=== PATIENT | male | born 1970 | race Caucasian/White ===

== ENCOUNTER 2020-03-19 07:59 | Emergency (ER) | payer OTHER, SELFPAY ==
[2020-03-19 08:05] VITALS: BP 174/100; PULSE 81; RESP 18; TEMP 36.8; O2SAT 96; BMI 48.8
--- NOTE | 2020-03-19 08:18 | CTR_ITS ---
PROCEDURE INFORMATION: Exam: CT Abdomen And Pelvis Without Contrast Exam date and time: 03/19/2020 8:20 AM Age: 49 years old Clinical indication: Other: Pain when pooping; Prior surgery; Surgery date: 6+ months; Surgery type: Had a lap band put in and taken out; Additional info: Llq pain, HX of diverticulitis TECHNIQUE: Imaging protocol: Computed tomography of the abdomen and pelvis without contrast. Radiation optimization: All CT scans at this facility use at least one of these dose optimization techniques: automated exposure control; mA and/or kV adjustment per patient size (includes targeted exams where dose is matched to clinical indication); or iterative reconstruction. Other contrast: Oral, REDI-CAT 2 , 450; COMPARISON: No relevant prior studies available. RADIATION DOSE METRICS: Total DLP (mGy-cm): 1638.08 FINDINGS: Lungs: 18.9 mm posterior left pulmonary basilar calcified granuloma. Liver: Normal. No mass. Gallbladder and bile ducts: Normal. No calcified stones. No ductal dilation. Pancreas: Normal. No ductal dilation. Spleen: The spleen demonstrates several small calcifications consistent with healed granulomatous disease. Adrenals: Normal. No mass. Kidneys and ureters: Posterior left renal upper pole exophytic 2.0 cm 14.3 Hounsfield units probable benign simple cyst. Stomach and bowel: There is mural thickening of the proximal sigmoid colon, with paracolonic diverticula and pericolonic soft tissue stranding with increased paracolic adipose attenuation. No evidence of perforation or abscess formation. Appendix: The vermiform appendix is normal. Intraperitoneal space: Unremarkable. No free air. No significant fluid collection. Vasculature: Unremarkable. No abdominal aortic aneurysm. Lymph nodes: No enlarged lymph nodes. Bladder: Unremarkable as visualized. Reproductive: The prostate gland demonstrates nonspecific parenchymal calcifications. Bones/joints: L5-S1 spondylosis with bilateral neural foraminal stenosis, mild anterolisthesis. Soft tissues: A tiny paraumbilical hernia containing only abdominal fat is noted. CT/CT abdomen pelvis wo con [id number] IMPRESSION: 1. Uncomplicated sigmoid colonic diverticulitis. 2. Left renal probable benign simple cyst. 3. Chronic calcific prostatitis. COMMENTS: Consistent with the [employer]'s Incidental Findings Committee white paper (J Am Gilbert Radiol 2018): Any incidental renal lesion less than 1.0 cm or classified as too small to characterize, or any incidental cystic renal lesion characterized as simple-appearing, is likely benign. No follow-up imaging is recommended for these lesions per consensus recommendations based on imaging criteria. Radiation Dose CTDIVOL = (mGy): DLP = 1638.08 (mGy-cm)
--- NOTE | 2020-03-19 08:19 | W.ED.ABDPA2 ---
HPI - Abdominal Pain General: Chief Complaint: Abdominal Pain Stated Complaint: abd pain Time Seen by Provider: 03/19/20 08:13 History of Present Illness: HPI narrative: Patient here with left lower quadrant abdominal pain that started about 0 300 this morning that was unbearable at that time having some diarrhea. He said this is similar to his other 3 hospitalizations for diverticulitis and he did want to get bad this time because he has had for [place] with his job. Denies any fever chills nausea or vomiting. MD elicited complaint: abdominal pain Pertinent past history: diverticulitis Onset (ago): hour(s) Pain Consistency: colicky Location: LLQ Severity: mild Quality: stabbing Radiation: none Migration to: no migration Exacerbating factors: nothing Relieving factors: rest Associated Symptoms: Reports no associated symptoms; Denies chills, fever(s), nausea and vomiting Review of Systems Const: Denies: fever(s), chills or body aches Eyes: Denies: change in vision or blurry vision ENMT: Denies: throat pain or nasal congestion Card: Denies: chest pain or dyspnea on exertion Resp: Denies: dyspnea, productive cough or non-productive cough GI: Reports: abdominal pain; Denies: nausea or vomiting : Denies: difficulty urinating Musc: Denies: extremity pain Skin/Breast: Denies: rash Neuro: Denies: headache(s) Psych: Denies: anxiety or depression Robinson/Lymph: Denies: easy bruising PFSH ED PFSH: Social History Smoking and tobacco status: never smoked Physical Exam Const: COMMON NORMALS: no acute distress, average body habitus and patient oriented x3 HENMT: COMMON NORMALS: normocephalic HEAD & SCALP: normal to inspection and normocephalic FACE & SINUS: normal facial exam Eye: COMMON NORMALS: conjunctivae normal GENERAL EYE: appearance normal, both eyes and all related structures CONJUNCTIVA: Yes conjunctivae normal Neck/C-Spine: COMMON NORMALS: no JVD Chest: COMMONS NORMALS: normal inspection of the chest Resp: COMMON NORMALS: normal respiratory effort and clear to auscultation bilaterally AUSCULTATION: clear to auscultation bilaterally Cardio: COMMON NORMALS: no JVD, regular rate and regular rhythm RATE: regular rate RHYTHM: regular rhythm GI: COMMON NORMALS: Normal to inspection, nondistended, normoactive bowel sounds present PALPATION: Yes Tenderness to palpation present (GI) Details: LLQ Extremity: COMMON NORMALS: normal to inspection and full ROM Neuro: COMMON NORMALS: patient oriented x3 Course Vital Signs: Vital signs: Vital Signs Temperature 98.2 F 03/19/20 08:05 Pulse Rate 81 03/19/20 08:05 Respiratory Rate 18 03/19/20 08:05 Blood Pressure 174/100 03/19/20 08:05 Pulse Oximetry 96 03/19/20 08:05 Coding Level of Care Code ED [employer] for Aditya Pozo
[2020-03-19 08:37] LABS: Basophils # 0.1 10^3/uL (0.0-0.1); Basophils % 0.6 %; Eosinophils # 0.2 10^3/uL (0.0-0.8); Eosinophils % 1.7 %; Hematocrit 43.2 % (42.0-52.0); Hemoglobin 13.7 g/dL (11.7-16.6); Lymphocytes # 3.2 10^3/uL (0.8-4.8); Lymphocytes % 22.9 %; Mean Corpuscular HGB Conc 31.7 g/dL (30.0-36.0); Mean Corpuscular Hemoglobin 27.5 pg (28.0-34.0); Mean Corpuscular Volume 86.6 fL (80-94); Mean Platelet Volume 10.9 fL (7.4-10.4); Monocytes # 0.9 10^3/uL (0.2-0.9); Monocytes % 6.3 %; Neutrophils # 9.6 10^3/uL (1.8-7.7); Neutrophils % 68.1 %; Nucleated Red Blood Cells % 0 %; Platelet Count 345 10^3/cmm (130-400); Red Blood Count 4.99 10^6/uL (4.1-5.3); Red Cell Distribution Width 13.6 % (12.1-15.1); White Blood Count 14.1 10^3/uL (4.0-10.0)
[2020-03-19] MEDS: ciprofloxacin 400 MG/200 ML PREMIX 200 MG IV (08:39)
[2020-03-19] MEDS: sodium chloride 0.9% 1,000 ML 999 ML IV (08:39)
--- NOTE | 2020-03-19 08:40 | PC.NURSE ---
Patient unable to urinate at this time.
[2020-03-19 08:42] LABS: Alanine Aminotransferase 28 U/L (0-41); Albumin Level 3.9 g/dL (3.5-5.2); Alkaline Phosphatase 71 IU/L (40-130); Anion Gap 14.5 (5-19); Aspartate Amino Transferase 27 U/L (0-40); Blood Urea Nitrogen 15 mg/dL (6-20); Calcium 8.6 mg/dL (8.5-10.5); Carbon Dioxide 26 mmol/L (22-29); Chloride 99 mmol/L (98-107); Globulin 4.1 g/dL (1.3-4.6); Glomerular Filtration Rate 79.1 mL/min (90-130); Glucose 107 mg/dL (65-115); Lipase 19 U/L (13-60); Osmolality Calculated 277 mOsm/kg (285-295); Potassium 4.5 mmol/L (3.5-5.1); Sodium 135 mmol/L (136-145); Total Bilirubin 0.7 mg/dL (0.15-1.2)
[2020-03-19 08:58] VITALS: RESP 15; O2SAT 98
[2020-03-19] MEDS: ondansetron 2 mg/ML SDV 2 mL 4 MG IVP (08:58)
[2020-03-19] MEDS: morphine 4 mg/mL SDV 1 mL IVP (08:58)
[2020-03-19 09:11] LABS: Add Urine Microscopic? NO
[2020-03-19 09:15] LABS: Bilirubin Urine Neg (NEGATIVE); Blood Urine Neg (Negative); Glucose Urine UA Norm (Normal); Ketones Urine Negative (Negative); Nitrate Urine Negative (Negative); Protein Urine Neg (Negative); Urine Appearance Clear (CLEAR); Urine Color Straw (Yellow); pH Urine 6.5 (5-7)
[2020-03-19 09:16] LABS: Leukocyte Esterase Urine Negative (Negative); Urobilinogen Urine Norm (Negative)
[2020-03-19] MEDS: barium sulfate 450 mL Oral Susp PO (09:29)
--- NOTE | 2020-03-19 10:29 | PC.NURSE ---
Read and agree with assessment
[2020-03-19] MEDS: metroNIDAZOLE IV 500 MG/100 ML PREMIX 100 MG IV (10:30)
[2020-03-19 11:32] VITALS: BP 136/69; PULSE 83; RESP 14; O2SAT 97
== END 2020-03-19 11:33 | disposition home or self-care (01) ==
PROVIDERS: Emergency Provider Nurse Practitioner Family
DX: R10.9 Unspecified abdominal pain (principal)
CPT/HCPCS: 12345; 74176; 80053; 81003; 83690; 85025; 96365; 96368; 96375; 99283; 99284; J0744; J2270; J2405; J7030; S0030

== ENCOUNTER → 2020-05-17 15:25 | Outpatient (BNVA) | payer OTHER, SELFPAY | PROVIDERS: Visit Provider Nurse Practitioner | DX: U07.1 COVID-19 (principal) | CPT/HCPCS: 87635 ==

== ENCOUNTER → 2020-05-30 11:31 | Outpatient (BNVA) | payer OTHER, SELFPAY | PROVIDERS: Visit Provider Nurse Practitioner | DX: R53.83 Other fatigue (principal) | CPT/HCPCS: 80053; 85025 ==

== ENCOUNTER → 2020-05-31 08:50 | Outpatient (BNVA) | payer OTHER, SELFPAY | PROVIDERS: Visit Provider Nurse Practitioner | DX: R73.9 Hyperglycemia, unspecified (principal) | CPT/HCPCS: 83036 ==

== ENCOUNTER 2020-12-10 09:03 | Emergency (ER) | payer OTHER, SELFPAY ==
--- NOTE | 2020-12-10 | USCV_ITS ---
Bassam Baker Age: 50 Gender: M : 1970 Exam Date: 12/10/2020 09:40 Ordering Phys: Harpreet Byrd DO Technologist: EUNICE [place] [facility] [place]: RLE CALF PAIN HISTORY: Lower extremity pain. PROCEDURES: Venous duplex imaging was performed in only the right lower extremity. The following venous structures were evaluated: common femoral vein, profunda vein, proximal portion of the greater saphenous vein, superficial femoral vein, and the popliteal vein. In addition, the posterior tibial and peroneal trunk were evaluated. Serial compression, augmentation maneuvers, and spectral Doppler flow evaluation were performed. FINDINGS: Examination was technically limited due to body habitus. Normal 2-D Doppler and augmentation and compressibility throughout the lower extremity venous structures. Additional imaging through the proximal calf veins also reveals no thrombus. Limited evaluation of the greater saphenous vein is patent with no thrombus.. CONCLUSIONS No DVT right lower extremity. Dr. Cony Resendiz DO (Electronically Signed) Final Date: 10 December 2020 16:09 S
[2020-12-10 09:11] VITALS: TEMP 36.3; BMI 50.2
[2020-12-10 09:14] VITALS: BP 164/83; PULSE 77; RESP 16; O2SAT 97
--- NOTE | 2020-12-10 09:17 | US_ITS ---
WS: [id number] ULTRASOUND SOFT TISSUES RIGHT lower extremity. HISTORY: R lower calf / suspect muscle tear COMPARISON: None available. TECHNIQUE: 2-D and color Doppler imaging is submitted. Ultrasound directed to the area of interest. This is within the posterior RIGHT lower extremity. Norm al appearance of the muscle bands. There is no fluid gap or mass identified. No fluid collection. No hematoma. US/US soft tissue/extremity [id number] IMPRESSION: Negative ultrasound RIGHT lower extremity soft tissue.
--- NOTE | 2020-12-10 09:22 | W.ED.EXTPRO ---
HPI - Extremity Problem General: Chief complaint: Extremity Injury, Lower Stated complaint: Right leg pain Time Seen by Provider: 12/10/20 09:12 History of Present Illness: HPI Narrative: 50-year-old male presents emergency room complaining of right calf pain. He is walking up an incline felt a snapping sensation in the sudden burning and pain in the right mid calf. He has had a difficult time walking since then. No other injury no injury to the head face neck or arms. When he got this it did cause enough discomfort he stumbled and fell. He is not previously had this before he is not on any blood thinners. MD Complaint: extremity pain Onset (ago): minute(s) Pain Consistency: constant Location: right Quality: burning and aching Relieving factors: immobilization and rest Exacerbating factors: weight bearing and walking Associated symptoms: Reports no associated symptoms; Deny arthralgias, chest pain, fever(s), myalgias, rash or short of breath Review of Systems Const: Denies: fever(s) ENMT: Denies: throat pain, ear or mastoid pain, nasal discharge or nasal congestion Card: Denies: chest pain Resp: Denies: dyspnea, productive cough or non-productive cough GI: Denies: abdominal pain, nausea, vomiting, hematemesis, coffee ground emesis, diarrhea, constipation, bloating, hematochezia or melena : Denies: flank pain, dysuria, urinary frequency or urinary urgency Skin/Breast: Denies: rash PFSH ED PFSH: Medical History DVT (deep venous thrombosis) Left NGHIA on CPAP Surgical History History of back surgery History of urethral narrowing Dilation Hx of laparoscopic gastric banding Then removed Family History Family/Other Leukemia Uncle Brother Diabetes Denies family history of Bleeding disorder Social History Smoking and tobacco status: never smoked Second hand smoke exposure: No Smoking risk assessment/counseling performed?: No Alcohol intake: never Desire information about alcohol rehabilitation?: No Counseling given: No Desire information about substance/drug rehabilitation?: No Counseling given: No Adopted: No Caregiver/support person: No Lives independently: Yes Household members: spouse Housing: House Marital status: service: No Current occupational status: employed Current occupation: [employer] History of recent travel: Yes Current gender identity: Male Physical Exam Const: COMMON NORMALS: no acute distress GENERAL APPEARANCE: cooperative and comfortable ORIENTATION/CONSCIOUSNESS: Yes awake, Yes oriented to person, Yes oriented to place and Yes oriented to time HENMT: COMMON NORMALS: normocephalic, atraumatic and hearing grossly normal bilaterally HEAD & SCALP: normocephalic and atraumatic Neck/C-Spine: COMMON NORMALS: no JVD Resp: COMMON NORMALS: normal respiratory effort, No retractions, No use of accessory muscles and clear to auscultation bilaterally AUSCULTATION: clear to auscultation bilaterally Cardio: COMMON NORMALS: no JVD, regular rate, regular rhythm and No murmurs present (Cardio) RATE: regular rate RHYTHM: regular rhythm GI: COMMON NORMALS: Soft to palpation and No hepatosplenomegaly present AUSCULTATION: Yes normoactive bowel sounds PALPATION: Yes Soft to palpation, No Tenderness to palpation present (GI), No Guarding due to palpation present (GI) and Yes No hepatosplenomegaly present Extremity: NARRATIVE EXTREMITY EXAM: Mild swelling of the right posterior calf. Patient can dorsum plantar flex strength without difficulty. Achilles tendon palpably intact Neuro: SENSORIUM/ORIENTATION: Yes oriented to person, Yes oriented to place and Yes oriented to time Skin: COMMON NORMALS: no rashes or lesions noted GENERAL SKIN EXAM: no rashes or lesions noted Course Vital Signs: Vital signs: Vital Signs Temperature 97.3 F L 12/10/20 09:11 Pulse Rate 89 12/10/20 10:36 Respiratory Rate 18 12/10/20 10:36 Blood Pressure 149/89 12/10/20 10:36 Pulse Oximetry 95 12/10/20 10:36 MDM - Extremity (Nontraumatic) MDM Narrative: Medical decision making narrative: Venous duplex lower extremity remedy negative for clot. The Achilles tendon is palpably intact. I suspect he has a gastrocnemius partial tear we will put him nonweightbearing on crutches follow-up with his primary care doctor work comp doctor if persists may need to an MRI for further evaluation. Avoid climbing her stairs nonweightbearing on the right leg without the crutches until released. Discharge Plan Discharge Patient Disposition: Home Clinical Impression: Sprain, gastrocnemius Condition: Stable Prescriptions: New diclofenac sodium 75 mg tablet,delayed release (DR/EC) 75 mg PO Q12H PRN (Reason: pain) Qty: 20 RF: 0 No Action (DME) nebulizer accessories Kit See Rx Instructions .ROUTE .MEDSUPPLY Qty: 1 RF: 0 clarithromycin 500 mg tablet 500 mg PO Q12H Qty: 20 RF: 0 Discharge Orders: Discharge ED (Routine); Ordered 12/10/20 Ordered By: Harpreet Byrd Discharge Diet: Usual diet Discharge Activity: Limit activity as instructed and Use walker/crutches as instructed Patient Instructions: Opioid Safety Activity Restrictions/Additional Instructions: No climbing stairs or ladders avoid inclines. Ice to the right lower leg anti-inflammatoriies. Nonweightbearing until released checkup with your Workmen's Comp. physician or primary care doctor in the next 2 days. Coding Level of Care Code ED [employer] for Aditya Pozo
[2020-12-10 10:36] VITALS: BP 149/89; PULSE 89; RESP 18; O2SAT 95
== END 2020-12-10 11:20 | disposition home or self-care (01) ==
PROVIDERS: Emergency Provider Family Medicine
DX: S86.111A Strain of other muscle(s) and tendon(s) of posterior muscle group at lower leg level, right leg, initial encounter (principal); X50.9XXA Other and unspecified overexertion or strenuous movements or postures, initial encounter
CPT/HCPCS: 76882; 93971; 99284; E0114

== ENCOUNTER → 2022-05-21 11:41 | Outpatient (BNVA) | payer OTHER, SELFPAY | PROVIDERS: PCP Family Medicine; Visit Provider Family Medicine | DX: R35.0 Frequency of micturition (principal); R79.89 Other specified abnormal findings of blood chemistry; N41.9 Inflammatory disease of prostate, unspecified; M65.311 Trigger thumb, right thumb; L91.8 Other hypertrophic disorders of the skin; N52.9 Male erectile dysfunction, unspecified; E66.01 Morbid (severe) obesity due to excess calories | CPT/HCPCS: 80053; 81000; 84153; 84403; 85025 ==

== ENCOUNTER → 2023-07-14 10:21 | Outpatient (BNVA) | payer OTHER, SELFPAY | PROVIDERS: PCP Family Medicine; Visit Provider Family Medicine | DX: E66.01 Morbid (severe) obesity due to excess calories (principal); Z98.84 Bariatric surgery status | CPT/HCPCS: 80053; 85025 ==

== ENCOUNTER → 2023-09-07 09:22 | Outpatient (BNVA) | payer OTHER, SELFPAY | PROVIDERS: PCP Family Medicine; Visit Provider Family Medicine | DX: E86.9 Volume depletion, unspecified (principal) | CPT/HCPCS: 81000 ==

== ENCOUNTER 2025-06-13 10:04 | Outpatient (CLI) | payer OTHER, SELFPAY ==
--- NOTE | 2025-06-13 10:18 | XR_ITS ---
WS: [id number] Exam: XR hip RT 2-3V wo/w pel* [id number] Date/Time of Exam: 06/13/2025 10:27 AM Reason For Exam: several year right sacroiliac pain No fracture. Mild to moderate degenerative change of the joint compartment. Operative fusion of the lumbosacral sacral junction. 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 XR/XR hip RT 2-3V wo/w pel* [id number] IMPRESSION: 1. 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 Other findings as detailed above.
== END 2025-06-13 10:05 | disposition home or self-care (01) ==
PROVIDERS: PCP Family Medicine; Visit Provider Family Medicine
DX: M16.11 Unilateral primary osteoarthritis, right hip (principal)
CPT/HCPCS: 73502

== ENCOUNTER 2025-06-21 07:53 | Outpatient (RCR) | payer OTHER, SELFPAY | END 2025-07-21 23:59 | disposition home or self-care (01) | LOC: SPT 07:53 | PROVIDERS: Visit Provider Family Medicine | DX: M16.11 Unilateral primary osteoarthritis, right hip (principal) | CPT/HCPCS: 97162; 97530 ==